=== PATIENT | female | born 1970 | race Caucasian/White ===

== ENCOUNTER 2017-10-12 13:02 | Emergency (ER) | payer MEDICARE ==
[~2017-10-12] VITALS: Ht 160 cm; Wt 45.4 kg
[2017-10-12] MEDS ORDERED: NORCO 5-325 TA1 EACH PO (13:10)
[2017-10-12] MEDS ORDERED: XANAX1 MG PO (13:10)
[2017-10-12] MEDS ORDERED: ACYCLOVIR 400400 MG PO (13:10)
[2017-10-12] MEDS ORDERED: IBUPROFEN 200200 M1 PO (13:10)
[2017-10-12 13:49] LABS: ABSOLUTE EOSINOPHILS 0.1 thou/uL (0.0-0.7); ABSOLUTE LYMPHOCYTES 1.6 thou/uL (0.8-5.3); ABSOLUTE MONOCYTES 0.5 thou/uL (0.0-1.2); ABSOLUTE NEUTROPHILS 1.7 thou/uL (1.6-8.1); BASOPHILS 1.1 %; EOSINOPHILS 1.9 %; HEMATOCRIT 38.9 % (37.0-47.0); HEMOGLOBIN 13.5 gm/dL (12.0-15.0); LYMPHOCYTES 41.3 %; MCH 32.7 pg (26.0-34.0); MCHC 34.7 g/dL (28.0-37.0); MCV 94.1 fL (80.0-100.0); MONOCYTES 13.2 %; MPV 7.5 fl. (7.2-11.1); NUCLEATED RBCS 0 /100WBC; PLATELET COUNT* 184 thou/uL (150-400); POLYS 42.5 %; RBC 4.13 mil/uL (4.20-5.00); RDW-CV 12.3 % (10.5-14.5); WBC 3.9 thou/uL (4.0-11.0)
[2017-10-12 14:29] LABS: ANION GAP 10 mmol/L (7-16); BUN 10 mg/dL (7-18); CALCIUM 8.8 mg/dL (8.5-10.1); CHLORIDE 102 mmol/L (98-107); CO2 29 mmol/L (21-32); CREATININE 0.8 mg/dL (0.6-1.3); GLUCOSE 113 mg/dL (70-99); POTASSIUM 3.3 mmol/L (3.5-5.1); SODIUM 141 mmol/L (136-145)
[2017-10-12 14:40] LABS: ALBUMIN 3.5 g/dL (3.4-5.0); ALKALINE PHOSPHATASE 54 U/L (46-116); LIPASE 298 U/L (73-393); MAGNESIUM 1.9 mg/dL (1.8-2.4); NT-PRO BRAIN NAT PEPTIDE 29 pg/mL (<300); SGOT 26 U/L (15-37); SGPT 18 U/L (30-65); TOTAL BILIRUBIN 0.1 mg/dL (<0.1-1.0); TROPONIN-I LEVEL <0.06 ng/mL (<0.06)
[2017-10-12 15:00] LABS: URINE BILIRUBIN NEGATIVE (Negative); URINE BLOOD NEGATIVE (Negative); URINE CLARITY CLEAR; URINE COLOR YELLOW; URINE GLUCOSE-RANDOM NEGATIVE (Negative); URINE KETONES NEGATIVE (Negative); URINE LEUKOCYTES-REFLEX NEGATIVE (Negative); URINE NITRITE-REFLEX NEGATIVE (Negative); URINE PROTEIN NEGATIVE (Negative); URINE UROBILINOGEN 0.2 E.U./dl (0.2-1.0)
[2017-10-12 15:10] LABS: AMP/METHAMP Negative (Negative); BARBITURATES Negative (Negative); BENZODIAZEPINES POSITIVE (Negative); COCAINE Negative (Negative); METHADONE Negative (Negative); OPIATES Negative (Negative); PCP Negative (Negative); THC POSITIVE (Negative)
[2017-10-12] MEDS ORDERED: ANTIVERT25 MG PO (16:06)
[2017-10-12 16:28] VITALS: BP 113/68
--- NOTE | 2017-10-12 17:28 | EKG ---
[place] [address] ELECTROCARDIOGRAM REPORT Name: CHARLY BRINK Room: [facility]#: [id number] Admission: 10/12/17 Attend Phys: Discharge: 10/12/17 Date of : 74 Report #: [id number] THIS REPORT FOR: //name// [facility] ED Test Date: 2017-10-12 Test Time: 13:34:26 Pat Name: CHARLY BRINK Department: Room: Gender: F [employer]: [place] HELLER : 1970 Requested By: Dee Dee Colbert Order Number: [id number] MD: Jorge Montez Measurements Intervals [place] Rate: 86 P: 67 ND: 143 QRS: 87 QRSD: 93 T: 64 QT: 363 QTc: 434 Interpretive Statements Sinus rhythm RSR' in V1 or V2, right VCD or RVH No previous ECG available for comparison Electronically Signed On 10-12-2017 17:27:58 [employer] by Jorge Montez [email or web address] <ELECTRONICALLY SIGNED> By: Jorge Montez MD, [facility] 10/12/17 1727 1334 1334 Jorge Montez MD, FACC /EPI
[2017-10-12] MEDS ORDERED: MEDROLDOSEPACK PO (17:39)
[2017-10-12] MEDS ORDERED: AUGMENTIN 875-1 EACH PO (17:39)
== END 2017-10-12 16:29 | disposition home or self-care (01) ==
LOC: M.ERS 13:02
PROVIDERS: Physician Assistant
DX: E86.0 Dehydration (principal); J32.2 Chronic ethmoidal sinusitis; I95.1 Orthostatic hypotension; M79.7 Fibromyalgia; Z85.3 Personal history of malignant neoplasm of breast